=== PATIENT | male | born 1965 | race Two or more races ===

== ENCOUNTER 2020-10-11 13:23 | Emergency (ER) | payer OTHER ==
[~2020-10-11] VITALS: Ht 172.7 cm; Wt 95.2 kg
[2020-10-11] MEDS ORDERED: LIPITOR20 MG PO (13:49)
[2020-10-11] MEDS ORDERED: CHLORTHALIDONE25 MG PO (13:50)
[2020-10-11] MEDS ORDERED: LISINOPRIL20 MG PO (13:51)
[2020-10-11] MEDS ORDERED: MOBIC15 MG PO (13:52)
[2020-10-11] MEDS ORDERED: CELEBREX200 MG PO (13:52)
[2020-10-11] MEDS ORDERED: PREDNISONE20 MG PO (17:11)
== END 2020-10-11 17:40 | disposition home or self-care (01) ==
LOC: ED 13:23
DX: G57.22 Lesion of femoral nerve, left lower limb (principal)
CPT/HCPCS: 72131; 73706; 80048; 83735; 85025; 99284-25; J1100; Q9967